=== PATIENT | female | born 1995 | race African-American/Black ===

== ENCOUNTER → 2016-05-16 | Outpatient (REF) | payer OTHER ==
[2016-05-16 17:46] LABS: CONTROL LINE HCG INT CTR LINE PRESENT
== END ==
LOC: M SFHCLERA 13:48
PROVIDERS: ATTEND Family Medicine
DX: N92.6 Irregular menstruation, unspecified (principal)

== ENCOUNTER → 2016-06-02 | Outpatient (CLI) | payer OTHER ==
[2016-06-02 13:41] LABS: BASO % 0.2 % (0.0-1.0); EOS % 0.6 % (0.0-3.0); LARGE UNSTAINED CELL # 0.1 K/mm3 (0.0-0.4); LARGE UNSTAINED CELL % 1.4 % (0.0-4.0); LYMPH # 1.4 K/mm3 (1.5-6.5); LYMPH % 17.8 % (24.0-44.0); MEAN CORPUSCULAR HEMOGLOBIN 28.3 pg (27.0-33.0); MEAN CORPUSCULAR HGB CONC 32.4 g/dl (32.0-36.5); MEAN CORPUSCULAR VOLUME 87.3 fl (80.0-96.0); MONO # 0.3 K/mm3 (0.0-0.8); MONO % 3.6 % (0.0-5.0); NEUTROPHILS # 5.8 K/mm3 (1.8-7.7); NEUTROPHILS % 76.4 % (36.0-66.0); PLATELET COUNT, AUTOMATED 206 k/mm3 (150-450); WHITE BLOOD COUNT 7.5 K/mm3 (4.0-10.0)
[2016-06-02 13:56] LABS: HBsAg Prenatal NEGATIVE (NEGATIVE)
== END ==
LOC: M SMT 11:02
PROVIDERS: ATTEND Advanced Practice Midwife
DX: Z34.81 Encounter for supervision of other normal pregnancy, first trimester (principal); Z36 Encounter for antenatal screening of mother; Z3A.00 Weeks of gestation of pregnancy not specified

== ENCOUNTER → 2016-07-17 | Outpatient (CLI) | payer OTHER ==
--- NOTE | 2016-07-18 02:53 | REP ---
Clinical: Anatomical evaluation. Comparison: 05/16/2016 . Findings: Examination demonstrates a single live intrauterine in cephalic presentation. motion is identified by technologist. Placenta is noted posteriorly and grade zero without evidence for placenta previa or abruption. Amniotic fluid volume is normal. Cervix measures 3.4 cm in length and appears closed. No evidence for nuchal cord. Gestational age by first US 18 weeks 2 days with ASHISH 12/16/1971 . Gestational age by current measurements 18 weeks 2 days with ASHISH 12/16/2016 . FHR equals 157 beats per minute. BPD 4.2 cm 18 weeks 5 days HC 15.3 cm 18 weeks 2 days AC 12.4 cm 18 weeks 0 days FL 2.8 cm 18 weeks 5 days HL 2.7 cm 18 weeks 4 days HC/AC ratio 1.24 Estimated weight 235 grams ( 48th percentile). Anatomical assessment demonstrates normal structures including cranium, choroid plexus, cavum, cerebellum/posterior fossa, facial features, lungs, diaphragm, stomach, three-vessel cord, kidneys/bladder, spine, and extremities. Limited evaluation of the heart and ventricular outflow tracts including possible prominent chordae tendineae. Incomplete evaluation of the umbilical cord insertion. Impression: 1. Single live intrauterine in cephalic presentation demonstrating appropriate interval growth. 2. Anatomical limitations as described above may warrant reevaluation and follow-up. Signed by Merlin Solis MD 07/18/2016 02:45 A
== END ==
LOC: M SMT 10:39
PROVIDERS: ATTEND Obstetrics & Gynecology
DX: Z34.82 Encounter for supervision of other normal pregnancy, second trimester (principal); Z36 Encounter for antenatal screening of mother; Z3A.18 18 weeks gestation of pregnancy

== ENCOUNTER → 2016-08-07 | Outpatient (CLI) | payer OTHER ==
--- NOTE | 2016-08-07 14:16 | REP ---
Clinical: Anatomical evaluation. Comparison: 07/17/2016 . Findings: Examination demonstrates a single live intrauterine in breech presentation. motion is identified by technologist. Placenta is noted posteriorly and grade zero without evidence for placenta previa or abruption. Amniotic fluid volume is normal. Cervix measures 5.0 cm in length and appears closed. Nuchal cord cannot be excluded. Gestational age by first US 21 weeks 2 days with ASHISH 12/16/2016 . Gestational age by current measurements 20 weeks 4 days with ASHISH 12/21/2016 . FHR equals 157 beats per minute. BPD 4.9 cm 20 weeks 5 days HC 18.3 cm 20 weeks 5 days AC 16.1 cm 21 weeks 1 day FL 3.5 cm 21 weeks 0 days HL 3.4 cm 21 weeks 3 days HC/AC ratio 1.14 Estimated weight 393 grams ( 37th percentile). Anatomical assessment demonstrates normal structures including cranium, choroid plexus, cavum, cerebellum/posterior fossa, facial features, lungs, four-chamber heart/ventricular outflow tracts, diaphragm, stomach, cord insertion/three-vessel cord, kidneys/bladder, spine, and extremities. Impression: Single live intrauterine in breech presentation demonstrating appropriate interval growth. Anatomical assessment is complete and normal. Nuchal cord cannot be excluded. Signed by Merlin Solis MD 08/07/2016 02:08 P
== END ==
LOC: M SMT 12:54
PROVIDERS: ATTEND Advanced Practice Midwife
DX: O32.1XX0 Maternal care for breech presentation, not applicable or unspecified (principal); Z36 Encounter for antenatal screening of mother; Z3A.20 20 weeks gestation of pregnancy

== ENCOUNTER → 2016-09-22 | Outpatient (CLI) | payer OTHER ==
[~2016-09-22] MED LIST: PRENTAB9 PO
[2016-09-22 14:06] LABS: MEAN CORPUSCULAR HEMOGLOBIN 30.8 pg (27.0-33.0); MEAN CORPUSCULAR HGB CONC 33.3 g/dl (32.0-36.5); MEAN CORPUSCULAR VOLUME 92.7 fl (80.0-96.0); RED CELL DISTRIBUTION WIDTH 13.8 % (11.5-14.5); WHITE BLOOD COUNT 9.2 K/mm3 (4.0-10.0)
== END ==
LOC: M SMT 10:02
PROVIDERS: ATTEND Obstetrics & Gynecology
DX: Z34.82 Encounter for supervision of other normal pregnancy, second trimester (principal); Z36 Encounter for antenatal screening of mother; Z3A.00 Weeks of gestation of pregnancy not specified

== ENCOUNTER → 2016-11-21 | Outpatient (REF) | payer OTHER ==
[~2016-11-21] MED LIST changes: +MOTR200T44 PO; +TYLE500T78 PO
== END ==
LOC: M LAB REF 13:08
PROVIDERS: ATTEND Advanced Practice Midwife
DX: Z34.83 Encounter for supervision of other normal pregnancy, third trimester (principal); Z3A.00 Weeks of gestation of pregnancy not specified